=== PATIENT | female | born 1985 | race Caucasian/White ===

== ENCOUNTER → 2016-07-14 | Outpatient (CLI) | payer BC ==
[~2016-07-14] MED LIST: PRENTAB26 PO
[2016-07-19 15:20] LABS: AMOXICILLIN CLASS 0; AMOXICILLIN IGE <0.10 kU/L; AMPICILLIN CLASS 0; AMPICILLIN IGE <0.10 kU/L; PENICILLIN-G CLASS 0; PENICILLIN-G IGE <0.10 kU/L; PENICILLIN-V CLASS 0; PENICILLIN-V IGE <0.10 kU/L
== END | disposition home or self-care (01) ==
LOC: C.LAB1850 10:21
PROVIDERS: ATTEND Internal Medicine Pulmonary Disease
DX: T78.40XA Allergy, unspecified, initial encounter (principal); Z33.1 Pregnant state, incidental; X58.XXXA Exposure to other specified factors, initial encounter

== ENCOUNTER → 2016-07-22 | Outpatient (CLI) | payer BC ==
[2016-07-22 12:13] LABS: HEMATOCRIT 33.7 % (37-47)
[2016-07-22 13:44] LABS: GTGD 50 Grams
[2016-07-22 14:32] LABS: URINE APPEARANCE CLEAR (CLEAR); URINE BILIRUBIN NEG (NEG); URINE COLOR YELLOW; URINE EPITHELIAL CELL AUTO >30 /lpf (0-5); URINE NITRITE NEG (NEG); URINE SPECIFIC GRAVITY 1.017 (1.000-1.030); UROBILINOGEN NEG (NEG)
[2016-07-22 14:42] LABS: MANUAL MICROSCOPIC REQUIRED? NO; REVIEW REQ? NO
== END | disposition home or self-care (01) ==
LOC: C.LAB1850 10:14
PROVIDERS: ATTEND Obstetrics & Gynecology
DX: O09.292 Supervision of pregnancy with other poor reproductive or obstetric history, second trimester (principal); Z3A.00 Weeks of gestation of pregnancy not specified; Z29.13 Encounter for prophylactic Rho(D) immune globulin

== ENCOUNTER → 2016-09-18 | Outpatient (CLI) | payer BC | END | disposition home or self-care (01) | LOC: C.LABSPEC 11:07 | PROVIDERS: ATTEND Obstetrics & Gynecology | DX: O09.293 Supervision of pregnancy with other poor reproductive or obstetric history, third trimester (principal) ==

== ENCOUNTER 2016-10-18 17:48 | Inpatient (IN) | payer BC ==
[~2016-10-18] VITALS: Ht 152.4 cm; Wt 66.4 kg
[2016-10-18 18:41] VITALS: Ht 152.4 cm; Wt 66.4 kg
[2016-10-18] MEDS ORDERED: PRENTAB26 PO (18:43)
[2016-10-18] MEDS ORDERED: LACTATED RINGER'S 1000ML 1,000 ML IV SCH (18:58)
[2016-10-18 19:31] LABS: HEMATOCRIT 39.4 % (37-47); MEAN CELL VOLUME 85.5 fL (80-100); MEAN CORPUSCULAR HEMOGLOBIN 28.6 pg (25-34); MEAN CORPUSCULAR HGB CONC 33.5 g/dl (32-36); MEAN PLATELET VOLUME 11.6 fL (7.4-10.4); PLATELET COUNT 136 K/uL (130-400); RED BLOOD COUNT 4.61 M/uL (4.2-5.4); WHITE BLOOD COUNT 9.23 K/uL (4.8-10.8)
[2016-10-18] MEDS: LACTATED RINGER'S 1000ML 1,000 ML IV PRN (23:33)
[2016-10-18] MEDS ORDERED: EpHEDrine SULFATE INJ 50 MG/ML AMP ONE (23:50)
[2016-10-18] MEDS ORDERED: FENTANYL 2MCG/ML ROPIV 1.25MG/ML 100ML BAG EPI ONE (23:50)
[2016-10-18] MEDS ORDERED: BUPIVACAINE 0.25% 30 ML VIAL ONE (23:50)
[2016-10-18] MEDS ORDERED: FENTANYL CITRATE INJ 50 MCG/1 ML 2 ML VIAL ONE (23:51)
[2016-10-19] MEDS: LACTATED RINGER'S 1000ML 1,000 ML IV PRN (00:16)
[2016-10-19] MEDS ORDERED: ONDANSETRON INJ 2 MG/ML 2 ML VIAL IV PRN (00:30)
[2016-10-19] MEDS ORDERED: FENTANYL 2MCG/ML ROPIV 1.25MG/ML 100ML BAG EPI PRN (00:30)
[2016-10-19] MEDS ORDERED: NALOXONE HCL INJ 0.4 MG/1 ML VIAL/CARP IV PRN (00:30)
[2016-10-19] MEDS ORDERED: NALBUPHINE HCL INJ 10 MG/ML AMP IV PRN (00:30)
[2016-10-19] MEDS ORDERED: NALOXONE HCL INJ 1 MG in SODIUM CHLORIDE 0.9% 1000ML 1,000 ML IV PRN (00:30)
[2016-10-19] MEDS ORDERED: DiphenhydrAMINE HCL 50 MG/ML VIAL IV PRN (00:30)
[2016-10-19] MEDS ORDERED: LACTATED RINGER'S 1000ML 500 ML IV PRN (00:30)
[2016-10-19] MEDS ORDERED: EpHEDrine SULFATE INJ 50 MG/ML AMP IV PRN (00:30)
[2016-10-19] MEDS ORDERED: OXYTOCIN 30 UNITS/500ML NSS IV ONE (04:59)
--- NOTE | 2016-10-19 05:24 | [facility] Operative Report ---
Operative Report Operative Date Oct 19, 2016. Pre-Operative Diagnosis at 40 weeks labor Post-Operative Diagnosis same Procedure(s) Performed epidural arom Surgeon [place] [facility] Representative Surgeon(s) none Estimated Blood Loss 400cc Findings viable male infant in patel, apgars 8/9, weight pending Fluids n/a Specimens placenta Drains none Anesthesia epidural Complication(s) None Disposition L&D Indications with iup at 40 weeks who presents in early active labor Description of Procedure PATIENT PRESENTED TO LABOR AND DELIVERY IN EARLY ACTIVE LABOR. SHE PROGRESSED SLOWLY, GOT EPIDURAL, AND THEN AROM FOR CLEAR FLUID AT 6CM. SHE THEN PROGRESSED SPONTANEOUSLY TO C/C/+3 AND PUSHED OVER ONE CONTRACTION TO DELIVER A VIABLE MALE IN PATEL. NOSE AND MOUTH SUCTIONED. REST OF THE BODY THEN DELIVERED EASILY. NOSE AND MOUTH AGAIN SUCTIONED. BABY DELIVERED THROUGH A LOOSE NUCHAL CORD. INFANT PLACED ON THE MATERNAL ABDOMEN FOR DRYING AND ATTENTION. CORD CLAMPED AND CUT AT ONE MINUTE OF LIFE PLACENTA DELIVERED S/I/3VC. CX/S/R/PERINEUM INTACT. HEMOSTASIS WITH DILUTE PITOCIN AND MASSAGE. EBL--400CC. APGARS 8/9. MOTHER AND BABY DOING WELL AT THE END OF THE DELIVERY. I attest to the content of the Intraoperative Record and any orders documented therein. Any exceptions are noted below.
[2016-10-19] MEDS ORDERED: LANOLIN OINT EXT PRN ×2 (05:30)
[2016-10-19] MEDS ORDERED: OXYTOCIN 30 UNITS/500ML NSS IV PRN (05:30)
[2016-10-19] MEDS ORDERED: ACETAMINOPHEN 325 MG TAB PO PRN (05:30)
[2016-10-19] MEDS ORDERED: DIPHTHERIA/TETANUS/PERTUSSIS 0.5 ML SYR/VIAL IM. ONE (05:30)
[2016-10-19] MEDS ORDERED: BENZOCAINE 20% AER SPR 82.5 GM CAN EXT PRN (05:30)
[2016-10-19] MEDS ORDERED: OXYCODONE/ACETAMINOPHEN 5-325 TAB PO PRN (05:30)
[2016-10-19] MEDS ORDERED: SUPERCREAM 0.870 % 15GM JAR EXT PRN (05:30)
[2016-10-19] MEDS ORDERED: HYDROCORTISONE ACETATE 25 MG SUPP PR PRN (05:30)
[2016-10-19 08:00] VITALS: BP 113/68; PULSE 92; TEMP 36.7
--- NOTE | 2016-10-19 08:32 | Anesthesia Procedure Note ---
Anesthesia Epidural Removal Nt Date & Time Oct 19, 2016 at 08:31 Vital Signs Pain Intensity: 0.0 Notes Mental Status: alert / awake / arousable, participated in evaluation Nausea / Vomiting: adequately controlled Pain: adequately controlled Airway Patency, RR, SpO2: stable & adequate BP & HR: stable & adequate Hydration State: stable & adequate Neuraxial Anesthesia: was administered Anesthetic Complications: no major complications apparent, pt satisfied with anesthetic care Epidural: removed without complications, with tip intact
[2016-10-19] MEDS: PRENATAL VITAMIN TAB PO SCH (08:59)
[2016-10-19] MEDS: IBUPROFEN 600 MG TAB PO PRN ×2 (08:59→19:57)
[2016-10-19] MEDS: DOCUSATE SODIUM 100 MG CAP PO SCH ×2 (08:59→19:56)
[2016-10-19 11:45] VITALS: BP 117/77; PULSE 65; TEMP 36.9
[2016-10-19 16:23] VITALS: BP 125/80; PULSE 63; TEMP 36.7
[2016-10-19 20:00] VITALS: BP 134/91; PULSE 69; TEMP 37; O2SAT 97
[2016-10-20] MEDS: IBUPROFEN 600 MG TAB PO PRN ×4 (00:19→13:40)
[2016-10-20 00:20] VITALS: BP 121/77; PULSE 69; TEMP 36.8; O2SAT 98
[2016-10-20 04:35] VITALS: BP 93/60; PULSE 79; TEMP 36.8; O2SAT 97
--- NOTE | 2016-10-20 06:47 | OB/GYN Progress Note ---
ADMINISTRATIVE TECHNICIAN Progress Note Date of Service Oct 20, 2016. Subjective conversation w/ patient, physical exam, chart review, lab review Ambulation: ambulating normally Voiding: no voiding problems Passing Gas: Yes Diet Tolerance: Regular Diet Lochia: Small Feeding Type: Breast Feeding Pain: Says some minimal low cramping Review of Systems Constitutional: No fever, No chills Respiratory: No cough, No shortness of breath Cardiac: No chest pain Abdomen: No nausea, No vomiting, No diarrhea Female : No dysuria Objective Vital Signs Date Time Temp Pulse Resp B/P (MAP) Pulse Ox O2 Delivery O2 Flow Rate FiO2 10/20/16 04:35 36.8 79 16 93/60 (71) 97 Room Air 10/20/16 00:20 Room Air 10/20/16 00:20 36.8 69 18 121/77 (92) 98 Room Air 10/19/16 20:00 37.0 69 18 134/91 (105) 97 Room Air 10/19/16 16:25 Room Air 10/19/16 16:23 36.7 63 16 125/80 (95) 10/19/16 11:45 36.9 65 16 117/77 (90) 10/19/16 08:00 Room Air 10/19/16 08:00 36.7 92 16 113/68 (83) Physical Exam General Appearance: WELL-APPEARING, WD/WN, NO APPARENT DISTRESS Respiratory/Chest: lungs clear, normal breath sounds Cardiovascular: regular rate, rhythm Abdomen: normal bowel sounds, non tender, soft Fundus: Firm, Tender (minimal over fundus), Relation to Umbilicus (at umbilicus ) Extremities: normal range of motion, non-tender, no pedal edema, no calf tenderness Laboratory Results Last 24 Hours Test 10/20/16 04:44 Assessment and Plan Post- Day Number: 1 Continue Routine Care: 31yo s/p , now PPD #1. - Blood type O negative. Baby O negative. GBS negative. Rubella immune. - Vital signs reviewed and stable. - Pain controlled with motrin. - No leg swelling or tenderness on calf palpation. Encourage ambulation. - Encourage breast feeding. - Hemoglobin preop 13.2, post-delivery pending. Bleeding has improved. Continue to monitor clinically. - Continue routine post-vaginal delivery care. - Pt agreed with above plan, all current questions answered. Vinh Farrar MD, PGY1 Filling Layer Up Physician Supervision Note: I interviewed and examined the patient. Discussed with Dr. Farrar and agree with findings and plan as documented in the note. Any exceptions or clarifications are listed here: Doing well. Plan d/c, instructions given. Documented By: Dot Mayberry Resident Tracking Resident Involvement: Resident Care Provided Care Provided: OB Delivery (morning rounds)
--- NOTE | 2016-10-20 07:09 | Discharge Instructions ---
Discharge Instructions Date of Service Oct 20, 2016. Admission Reason for Admission: Check Labor Discharge Discharge Diagnosis / Problem: Recovery from vaginal delivery Discharge Goals Goal(s): Routine recovery after delivery Medications Continue Dispensed Medications: supercream, dermaplast, tucks, lansinoh Activity Recommendations Activity Limitations: per Instructions/Follow-up section . Instructions / Follow-Up Instructions / Follow-Up ACTIVITY RECOMMENDATIONS: * Gradual return to full activity over the next 2-3 weeks. * No lifting - nothing heavier than baby over the next 2-3 weeks. * Do not engage in vigorous exercise, sexual activity or sports until cleared by your physician. * Do not drive or operate any motorized equipment until cleared by your physician. * You may shower/bathe daily. MEDICATIONS: For discomfort or pain, you may use Acetaminophen (Tylenol), Ibuprofen (Advil), or Naproxen (Aleve) following the package directions. For constipation you may use Colace following the package directions. BREAST CARE: If you are not breast feeding: * Wear a supportive bra 24 hours a day for one to two weeks. * Avoid stimulating your breasts and nipples as much as possible during the first few weeks after delivery. * When taking a shower, have the warm water hit your back, not breasts. * When your breasts feel full, apply ice packs. Usually three to four times a day helps ease the discomfort. * Take a mild pain medication (Tylenol / Motrin) when you are uncomfortable. If breast feeding: * Use breast milk to lubricate nipples. Lansinoh cream may be used for sore nipples. You do not need to remove cream prior to breast feeding. If using a different brand of cream, check the label for directions regarding removal of cream prior to nursing. * Wear a supportive bra. * If having problems with breasts or breast feeding, call a salon sales consultant or your health care provider. EPISIOTOMY CARE: After delivery, if you have an episiotomy (stitches), the following steps will ease discomfort and aid healing. * For the first 24 hours after delivery, place ice packs next to your episiotomy to help reduce swelling. * After the first 24 hour-period, sitz baths, either portable or in the tub, are suggested. A shower with a shower arm sprayed over the episiotomy may be comforting. * Dunia care should be done after each voiding and bowel movement. Squirt warm water from a plastic bottle over the perineum (region of the body between the anus and urinary opening) and pat dry. * Use Dermoplast to ease discomfort. Shake container. [place] directly over the episiotomy. Place a Tucks on a clean sanitary pad next to your episiotomy. SPECIAL CARE INSTRUCTIONS: When you are discharged from the hospital, it is important for you to follow the instructions listed below: * During the first week at home, you should be able to care for yourself and your baby. In addition, the usual light household activities are encouraged. * Limit your activities to the way you feel. Do not try to clean the house or move furniture. Be sensible. * If you actively engage in sports and have done so up until the time of your delivery, you may resume these activities as soon as you feel able. This may take up to one month or even longer. Use good judgment. * Continue to take your vitamins for at least six weeks after the of your baby. * Your diet need not be limited unless you were on a special diet before your delivery. Breast-feeding mothers need around 2500 calories per day and at least 64-80 ounces of fluid per day (8 to 10 glasses). * You should eat foods from the four major food groups. Crash diets or fad diets are to be avoided. Eating lean meats, fresh fruits and vegetables, low-fat dairy products, high fiber foods and a regular exercise program, will help you get back to your pre- weight without putting your health at risk. * Constipation is sometimes a problem after delivery. Take a mild laxative as needed. If breast feeding, Milk of Magnesia is acceptable to use. You may use a suppository or Fleets enema if no episiotomy. * A daily shower or tub bath is suggested. Be sure to thoroughly and gently dry the perineum. * A bloody vaginal discharge will usually continue until around four weeks post . A small amount of bleeding may continue for as long as six weeks. Vaginal discharge changes from the bright red bleeding after delivery to pink then brownish and finally yellowish-pink before becoming white and disappearing. * Bleeding may increase with activity. Your first period may come in 4-8 weeks. If you are breast feeding, your period may be delayed even longer. * [place] (sex) can begin whenever both you and your partner feel comfortable and do not have any form of genital infection. It is recommended that you wait at least six weeks for internal and external healing to occur. If you have questions, please talk to your health care practitioner. A condom should be used to prevent infection and . * Foreplay, gentle intercourse and lubrication is very important the first several times to prevent pain. A water-based lubricant such as K-Y jelly or Astroglide may be used. * If you have RH negative blood and your baby is RH positive, you will receive RHOGAM by injection prior to discharge. The nurse will give you a card to keep with you that has the date and place that you received RHOGAM after delivery. * During your care, you had a Rubella screen done to check for the presence of rubella antibodies in your blood. If your test was negative, you will receive a Rubella vaccine prior to discharge. This vaccine may cause a fever, soreness at the injection site and flu-like symptoms. If these symptoms persist, notify your health care practitioner. is not advised for one month after a Rubella vaccine. * Verbalizes understanding of car seat law as reviewed with patient nursing. * Car Seat hand-out given and reviewed with patient by nursing. * Shaken baby information reviewed with patient by nursing. Call you doctor if: * Heavy bleeding (saturating several pads an hour) or passing clots the size of your fist. * A fever >101 degrees F (38.3 degrees C) on two occasions four hours apart and /or chills. * Unusual pain in the pelvic or vaginal areas. * "Baby Blues" lasting longer than two weeks. If you have any questions or concerns, call your health care practitioner at . FOLLOW UP VISIT: * Please call the office at to schedule a 6 week examination. It is important you keep this appointment. It is important for you to make arrangements for either yearly or twice yearly check-ups thereafter. Current Hospital Diet Patient's current hospital diet: Regular OB Diet Discharge Diet Recommended Diet: Regular OB Diet Procedures Procedures Performed: epidural arom Pending Studies Studies pending at discharge: no Medical Emergencies . Who to Call and When: Medical Emergencies: If at any time you feel your situation is an emergency, please call 911 immediately. . Non-Emergent Contact Non-Emergency issues call your: Windows And Doors Installer . . "Provider Documentation" section prepared by Vinh Farrar. . VTE Core Measure Inpt VTE Proph given/why not?: Treatment not indicated
[2016-10-20 07:26] LABS: HEMATOCRIT 38.2 % (37-47)
[2016-10-20 08:15] VITALS: BP 118/77; PULSE 66; TEMP 36.8
[2016-10-20] MEDS: DOCUSATE SODIUM 100 MG CAP PO SCH (08:23)
[2016-10-20] MEDS: PRENATAL VITAMIN TAB PO SCH (08:23)
[2016-10-20 17:00] VITALS: BP 110/68; PULSE 73; TEMP 36.8
== END 2016-10-20 17:25 | disposition home or self-care (01) | DRG 775 ==
LOC: C.OPB 17:48 → C.LD 17:49 → C.OPB 19:04 → C.LD 19:04 → C.OBG 10-19 07:51
PROVIDERS: ADMIT Obstetrics & Gynecology; ATTEND Obstetrics & Gynecology
PROC: 10E0XZZ Delivery of Products of Conception, External Approach (ICD-10-PCS; principal; 2016-10-19)
DX: O69.81X1 Labor and delivery complicated by cord around neck, without compression, fetus 1 (principal); Z37.0 Single live birth; Z3A.40 40 weeks gestation of pregnancy